=== PATIENT | female | born 1935 | race African-American/Black ===

== ENCOUNTER 2017-01-14 07:16 | Emergency (ER) | payer OTHER ==
[~2017-01-14] VITALS: Ht 160 cm; Wt 75.0 kg
[~2017-01-14 07:16] MED LIST: AMLO10 PO; ASPI81 PO; COZA100T PO; Co Q-10 PO; DICL-86 PO; LASI20TA PO; LORA10TA7 PO; MECL12.574 PO; MEGA RED; POTA-243 PO; PROT40TA PO; TEMA15 PO; TIZA4 PO; TRAM50 PO; ZETI10TA5 PO
[2017-01-14 07:19] VITALS: BP 143/68; PULSE 64; RESP 16; TEMP 98.1; O2SAT 99
[2017-01-14 07:59] LABS: AUTOMATED NEUTROPHIL # 2.7 TH/MM3 (1.8-7.7); BASOPHIL % 0.7 % (0.0-2.0); EOSINOPHIL # 0.1 TH/MM3 (0-0.4); EOSINOPHIL % 1.7 % (0.0-4.0); HEMATOCRIT 33.9 % (35.0-46.0); HEMO FLAGS DIFF FINAL; LYMPH % 39.5 % (9.0-44.0); LYMPHOCYTE # 2.2 TH/MM3 (1.0-4.8); MEAN CELL VOLUME 87.4 FL (80.0-100.0); MEAN CORPUSCULAR HEMOGLOBIN 28.8 PG (27.0-34.0); MONO % 8.7 % (0.0-8.0); NEUT % 49.4 % (16.0-70.0); PLATELET COUNT 242 TH/MM3 (150-450); RED BLOOD COUNT 3.88 MIL/MM3 (4.00-5.30); RED CELL DISTRIBUTION WIDTH 15.7 % (11.6-17.2); WHITE BLOOD COUNT 5.5 TH/MM3 (4.0-11.0)
[2017-01-14 08:12] LABS: ANION GAP 7 MEQ/L (5-15); BLOOD UREA NITROGEN 15 MG/DL (7-18); CHLORIDE 110 MEQ/L (98-107); GLOMERULAR FILTRATION RATE 68 ML/MIN (>89); POTASSIUM 3.6 MEQ/L (3.5-5.1); SODIUM (NA) 143 MEQ/L (136-145)
--- NOTE | 2017-01-14 08:14 | RADRPT ---
EXAM DATE/TIME: 01/14/2017 07:44 [facility] COMPARISON: KNEE LEFT COMPLETE (4VWS), June 18, 2016, 5:36. INDICATIONS : Chest pain. MEDICAL HISTORY : None. SURGICAL HISTORY : None. ENCOUNTER: Initial ACUITY: 1 day PAIN SCORE: 6/10 LOCATION: Left lower chest FINDINGS: A single view of the chest demonstrates the lungs to be symmetrically aerated without evidence of mas s, infiltrate or effusion. The cardiomediastinal contours are unremarkable. Osseous structures are intact. CONCLUSION: 1. Negative examination. Colten De Leon MD on January 14, 2017 at 8:12 Board Certified Radiologist. This report was verified electronically.
[2017-01-14 08:16] LABS: CREATINE KINASE 65 U/L (26-192)
--- NOTE | 2017-01-14 22:45 | EKG ---
Date Performed: 01/14/2017 Time Performed: 07:35:28 PTAGE: 81 years EKG: SINUS BRADYCARDIA BORDERLINE LEFT AXIS DEVIATION BORDERLINE ECG PREVIOUS TRACING : 10/21/2010 20.08 DOCTOR: Kelli Darling Interpretating Date/Time 01/14/2017 22:43:52
== END 2017-01-14 13:15 | disposition left against medical advice (07) ==
LOC: NED 07:16
DX: R07.9 Chest pain, unspecified (principal)
CPT/HCPCS: 71010; 80048; 82550; 84484; 85025; 93005; 99281

== ENCOUNTER 2017-01-16 12:36 | Observation (INO) | payer OTHER ==
[2017-01-16] VITALS (9 sets, daily range): BP systolic 142–162; BP diastolic 59–70; PULSE 47–59; RESP 15–24; TEMP 98.1–98.8; O2SAT 99–100
[~2017-01-16] VITALS: Ht 160 cm; Wt 72.0 kg
--- NOTE | 2017-01-16 14:09 | PD ---
HPI Chief Complaint: Cardiac Complaint Time Seen by Provider: 13:55 Travel History International Travel<30 days: No Contact w/Intl Traveler<30days: No Traveled to known affect area: No History of Present Illness HPI 81-year-old female with history of CVA, hypertension, presents for evaluation of chest and abdominal pain. She reports over the past 2 days. She's been expressing left sided chest and upper quadrant abdominal pain that radiates into left arm. She describes it as a pulsating pain that comes and goes. It seems to be worse in the mornings. She was initially expressing some pain 2 days ago, came here left without being seen. Yesterday she felt somewhat better although she continued pain in her left arm. Today she woke up with worsening pain which prompted evaluation. She does say that the pain in the left upper portion of her abdomen and radiates into the back. She denies any nausea or vomiting, cough or congestion, fevers or chills, diarrhea or constipation, calf swelling. No known history of AAA. No previous history of PE or DVT. Her last myocardial perfusion scan on record was in February 2010 and it was negative. She has no other complaints. PFSH Past Medical History Hx Anticoagulant Therapy: Yes (PLAVIX) Heart Rhythm Problems: No Cardiac Catheterization: No Cardiovascular Problems: No High Cholesterol: Yes Congestive Heart Failure: No Cerebrovascular Accident: Yes (TIA) Diabetes: No Diminished Hearing: No Gastrointestinal Disorders: Yes (colitis) GERD: Yes Hypertension: Yes Myocardial Infarction: No Menopausal: Yes : 4 Para: 4 Past Surgical History Coronary Artery Bypass Graft: No Hysterectomy: Yes Tonsillectomy: Yes Family History Family Hypercholesterolemia: Yes (PT HX) Social History Alcohol Use: Yes (OCCASIONAL WINE) Tobacco Use: No Substance Use: No Allergies-Medications (Allergen,Severity, Reaction): Coded Allergies: Penicillin (Verified Allergy, Unknown, UNKNOWN REACTION, 01/16/17) Garlic (Verified Adverse Reaction, Severe, NAUSEA, VOMITING, 01/16/17) Uncoded Allergies: nuts (Allergy, Severe, 10/21/10) Reported Meds & Prescriptions Reported Meds & Active Scripts Active Reported Tramadol (Tramadol HCl) 50 Mg Tab 50 Mg PO Q12HR PRN Tizanidine (Tizanidine HCl) 4 Mg Cap 4 Mg PO TID D3 (Cholecalciferol) 1,000 Unit Tab Coq10 (Coenzyme Q10 (Ubidecarenone)) 200 Mg Cap Clopidogrel (Clopidogrel Bisulfate) 75 Mg Tab 75 Mg PO DAILY Montelukast (Montelukast Sodium) 10 Mg Tab 10 Mg PO HS Potassium Chloride ER (Potassium Chloride) 10 Meq Cap 10 Meq PO BID Furosemide 40 Mg Tab 40 Mg PO BID Meclizine (Meclizine HCl) 12.5 Mg Tab 12.5 Mg PO DIRECTED PRN Pantoprazole (Pantoprazole Sodium) 40 Mg Tab 40 Mg PO DAILY Atorvastatin (Atorvastatin Calcium) 10 Mg Tab 10 Mg PO HS Losartan (Losartan Potassium) 100 Mg Tab 100 Mg PO DAILY Norvasc (Amlodipine Besylate) 10 Mg Tab 10 Mg PO DAILY Review of Systems Except as stated in HPI: all other systems reviewed are Neg Physical Exam Narrative GENERAL: Well-developed well-nourished female in no acute distress SKIN: Warm and dry. HEAD: Atraumatic. Normocephalic. EYES: Pupils equal and round. No scleral icterus. No injection or drainage. ENT: No nasal bleeding or discharge. Mucous membranes pink and moist. NECK: Trachea midline. No JVD. CARDIOVASCULAR: Regular rate and rhythm. No murmur appreciated. RESPIRATORY: No accessory muscle use. Clear to auscultation. Breath sounds equal bilaterally. No crackles no wheezing or rhonchi GASTROINTESTINAL: Abdomen soft, tender to palpation left upper quadrant with pain radiating to the back with palpation. No guarding. No palpable masses. No flank or periumbilical ecchymosis. MUSCULOSKELETAL: No obvious deformities. No clubbing. No cyanosis. No edema. NEUROLOGICAL: Awake and alert. No obvious cranial nerve deficits. Motor grossly within normal limits. Normal speech. PSYCHIATRIC: Appropriate mood and affect; insight and judgment normal. Data Data Last Documented VS Vital Signs Date Time Temp Pulse Resp B/P Pulse Ox O2 Delivery O2 Flow Rate FiO2 01/16/17 15:35 48 21 150/64 100 Room Air 01/16/17 12:39 98.1 Orders Electrocardiogram (01/16/17 ) Ckmb (Isoenzyme) Profile (01/16/17 14:02) Complete Blood Count With Diff (01/16/17 14:02) Comprehensive Metabolic Panel (01/16/17 14:02) Magnesium (Mg) (01/16/17 14:02) Prothrombin Time / Inr (Pt) (01/16/17 14:02) Act Partial Throm Time (Ptt) (01/16/17 14:02) Troponin I (01/16/17 14:02) Lipase (01/16/17 14:02) Chest, Single Ap (01/16/17 14:02) Ecg Monitoring (01/16/17 14:02) Bilateral Bp Monitoring (01/16/17 14:02) Iv Access Insert/Monitor (01/16/17 14:02) Oximetry (01/16/17 14:02) Oxygen Administration (01/16/17 14:02) Sodium Chloride 0.9% Flush (Ns Flush) (01/16/17 14:15) Ct Abd/Pel W Iv Contrast(Rout) (01/16/17 14:02) Ct Pulmonary Angiogram (01/16/17 14:04) CKMB (01/16/17 14:30) CKMB% (01/16/17 14:30) Iohexol 350 Inj (Omnipaque 350 Inj) (01/16/17 16:09) Admit Order (Ed Use Only) (01/16/17 17:01) Labs Laboratory Tests Test 01/16/17 14:30 White Blood Count 5.7 TH/MM3 Red Blood Count 4.06 MIL/MM3 Hemoglobin 11.5 GM/DL Hematocrit 34.9 % Mean Corpuscular Volume 86.0 FL Mean Corpuscular Hemoglobin 28.4 PG Mean Corpuscular Hemoglobin 33.1 % Concent Red Cell Distribution Width 15.5 % Platelet Count 258 TH/MM3 Mean Platelet Volume 9.2 FL Neutrophils (%) (Auto) 52.4 % Lymphocytes (%) (Auto) 38.2 % Monocytes (%) (Auto) 7.8 % Eosinophils (%) (Auto) 1.0 % Basophils (%) (Auto) 0.6 % Neutrophils # (Auto) 3.0 TH/MM3 Lymphocytes # (Auto) 2.2 TH/MM3 Monocytes # (Auto) 0.4 TH/MM3 Eosinophils # (Auto) 0.1 TH/MM3 Basophils # (Auto) 0.0 TH/MM3 CBC Comment DIFF FINAL Differential Comment Prothrombin Time 10.8 SEC Prothromb Time International 1.0 RATIO Ratio Activated Partial 27.9 SEC Thromboplast Time Sodium Level 141 MEQ/L Potassium Level 3.5 MEQ/L Chloride Level 106 MEQ/L Carbon Dioxide Level 26.8 MEQ/L Anion Gap 8 MEQ/L Blood Urea Nitrogen 16 MG/DL Creatinine 1.00 MG/DL Estimat Glomerular Filtration 65 ML/MIN Rate Random Glucose 85 MG/DL Calcium Level 9.1 MG/DL Magnesium Level 1.9 MG/DL Total Bilirubin 0.4 MG/DL Aspartate Amino Transf 16 U/L (AST/SGOT) Alanine Aminotransferase 13 U/L (ALT/SGPT) Alkaline Phosphatase 68 U/L Total Creatine Kinase 124 U/L Creatine Kinase MB 0.5 NG/ML Troponin I LESS THAN 0.02 NG/ML Total Protein 7.0 GM/DL Albumin 3.4 GM/DL Lipase 101 U/L [facility] Medical Decision Making Medical Screen Exam Complete: Yes Emergency Medical Condition: Yes Medical Record Reviewed: Yes Interpretation(s) EKG sinus bradycardia rate 51 Chest x-ray normal Labwork unremarkable CT abdomen and pelvis CT pulmonary angiogram Differential Diagnosis Gastritis, pancreatitis, AAA, pleurisy, pericarditis, myocarditis, pe, unstable angina, peptic ulcer disease Narrative Course 81-year-old female with 2 days of left-sided chest and abdominal pain that radiates into left arm and into the back. Discussed with Dr. Haines who agrees with plan of care. Plans for basic lab work, EKG with ECG monitoring, CT of the abdomen and pelvis as well as CT pulmonary angiogram. The patient's laboratory imaging studies. CT of the abdomen and pelvis reveals possible mild ileus or gastroenteritis per radiology read however the patient has no symptoms to suggest ileus or gastroenteritis. Nares reveals mild dilatation of the ascending aorta with no acute abnormalities. On examination the patient continues to be chest pain-free at this time. The plan therefore be treated with the patient and of the chest pain center for serial cardiac enzymes and rule out purposes. She is agreeable. The patient did take Plavix this morning as routinely scheduled. Diagnosis Primary Impression: Chest pain Qualified Code: R07.9 - Chest pain, unspecified type Admitting Information Admitting Physician Requests: Hector Cummings Jan 16, 2017 14:09
[2017-01-16] MEDS ORDERED: SODIUM CHLORIDE 0.9% FLUSH 5 ML FLUSH IVF PRN ×2 (14:15→17:15)
[2017-01-16] MEDS ORDERED: MONT10TA4 PO (14:19)
[2017-01-16] MEDS ORDERED: TRAM50TA PO (14:19)
[2017-01-16] MEDS ORDERED: LOSA100T PO (14:19)
[2017-01-16] MEDS ORDERED: AMLO10 PO (14:19)
[2017-01-16] MEDS ORDERED: FURO40TA PO (14:19)
[2017-01-16] MEDS ORDERED: ATOR10TA15 PO (14:19)
[2017-01-16] MEDS ORDERED: PANT40TA3 PO (14:19)
[2017-01-16] MEDS ORDERED: POTA10CA PO (14:19)
[2017-01-16] MEDS ORDERED: CLOP75TA PO (14:19)
[2017-01-16] MEDS ORDERED: TIZA4CAP3 PO (14:19)
[2017-01-16] MEDS ORDERED: MECL12.574 PO (14:19)
[2017-01-16] MEDS ORDERED: D31000TA (14:19)
[2017-01-16] MEDS ORDERED: COQ1200C (14:19)
[2017-01-16 15:01] LABS: BASOPHIL % 0.6 % (0.0-2.0); EOSINOPHIL # 0.1 TH/MM3 (0-0.4); HEMATOCRIT 34.9 % (35.0-46.0); HEMO FLAGS DIFF FINAL; LYMPH % 38.2 % (9.0-44.0); LYMPHOCYTE # 2.2 TH/MM3 (1.0-4.8); MEAN CORPUSCULAR HEMOGLOBIN 28.4 PG (27.0-34.0); MEAN CORPUSCULAR HGB CONC 33.1 % (32.0-36.0); MONO % 7.8 % (0.0-8.0); NEUT % 52.4 % (16.0-70.0); PLATELET COUNT 258 TH/MM3 (150-450); RED BLOOD COUNT 4.06 MIL/MM3 (4.00-5.30); RED CELL DISTRIBUTION WIDTH 15.5 % (11.6-17.2); WHITE BLOOD COUNT 5.7 TH/MM3 (4.0-11.0)
[2017-01-16 15:10] LABS: APTT (PATIENT) 27.9 SEC (24.3-30.1); PROTHROMBIN TIME - PATIENT 10.8 SEC (9.8-11.6)
--- NOTE | 2017-01-16 15:12 | RADRPT ---
EXAM DATE/TIME: 01/16/2017 14:28 [facility] COMPARISON: CHEST SINGLE AP, January 14, 2017, 7:44. INDICATIONS : Chest pain. MEDICAL HISTORY : Hypertension. SURGICAL HISTORY : None. ENCOUNTER: Initial ACUITY: 3 days PAIN SCORE: 6/10 LOCATION: Left upper chest FINDINGS: A single view of the chest demonstrates the lungs to be symmetrically aerated without evidence of mas s, infiltrate or effusion. Atherosclerotic calcifications are present in the aorta. The cardiomediast inal contours are unremarkable. Osseous structures are intact. CONCLUSION: No acute disease. Bishnu Sanz MD on January 16, 2017 at 15:10 Board Certified Radiologist. This report was verified electronically.
[2017-01-16 15:16] LABS: ALT (GPT) 13 U/L (10-53); ANION GAP 8 MEQ/L (5-15); AST (GOT) 16 U/L (15-37); BICARBONATE 26.8 MEQ/L (21.0-32.0); BLOOD UREA NITROGEN 16 MG/DL (7-18); CHLORIDE 106 MEQ/L (98-107); GLOMERULAR FILTRATION RATE 65 ML/MIN (>89); MAGNESIUM 1.9 MG/DL (1.5-2.5); POTASSIUM 3.5 MEQ/L (3.5-5.1); SODIUM (NA) 141 MEQ/L (136-145)
[2017-01-16 15:20] LABS: ALKALINE PHOSPHATASE 68 U/L (45-117); CREATINE KINASE 124 U/L (26-192); TOTAL BILIRUBIN ADULT 0.4 MG/DL (0.2-1.0)
[2017-01-16 15:32] LABS: CKMB 0.5 NG/ML (0.5-3.6)
[2017-01-16] MEDS ORDERED: IOHEXOL 350 MG/ML 10 ML VIAL (for RAD DIAG) IV ONE (16:09)
--- NOTE | 2017-01-16 16:43 | RADRPT ---
EXAM DATE/TIME: 01/16/2017 15:58 [facility] COMPARISON: No previous studies available for comparison. INDICATIONS : Abdominal/chest pain radiating to left arm. IV CONTRAST: 93 cc Omnipaque 350 (iohexol) IV ; Cumulative dose for multiple exams. RADIATION DOSE: 20.89 CTDIvol (mGy) MEDICAL HISTORY : Hypertension. Colitis SURGICAL HISTORY : Hysterectomy. ENCOUNTER: Initial ACUITY: 1 day PAIN SCALE: 4/10 LOCATION: Left chest TECHNIQUE: Volumetric scanning of the chest was performed using a pulmonary embolism protocol MIP images were reconstructed. Using automated exposure control and adjustment of the mA and/or kV acco rding to patient size, radiation dose was kept as low as reasonably achievable to obtain optimal diag nostic quality images. FINDINGS: The lungs are clear. There is no evidence for central pulmonary emboli. There is no axillary or mediastinal adenopathy. There is moderate coronary artery calcification evident with minimal dilatation of the ascending aort a when compared to the descending aorta. The ascending aorta is dilated to 3.8 cm. There is no pericardial effusion. Portion of the liver and spleen identified are free of focal defec ts. CONCLUSION: 1. There is no evidence of central pulmonary emboli. 2. Mild dilatation of the ascending aorta. Bryan De Leon MD FACR on January 16, 2017 at 16:13 Board Certified Radiologist. This report was verified electronically.
--- NOTE | 2017-01-16 16:43 | RADRPT ---
EXAM DATE/TIME: 01/16/2017 15:56 [facility] COMPARISON: No previous studies available for comparison. INDICATIONS : Abdominal/chest pain radiating to left arm. IV CONTRAST: 93 cc Omnipaque 350 (iohexol) IV ; Cumulative dose for multiple exams. ORAL CONTRAST: No oral contrast ingested. RADIATION DOSE: 8.73 CTDIvol (mGy) MEDICAL HISTORY : Hypertension. Colitis SURGICAL HISTORY : Hysterectomy. ENCOUNTER: Initial ACUITY: 1 day PAIN SCALE: 5/10 LOCATION: Left abdominal TECHNIQUE: Volumetric scanning of the abdomen and pelvis was performed. Using automated exposure control and ad justment of the mA and/or kV according to patient size, radiation dose was kept as low as reasonably achievable to obtain optimal diagnostic quality images. FINDINGS: LOWER LUNGS: The visualized lower lungs are clear. LIVER: Homogeneous density without lesion. There is no dilation of the biliary tree. No calcified gallston es. SPLEEN: Normal in size and shape with 2 small round low-attenuation lesions measuring 7-8 mm in size. PANCREAS: Within normal limits. KIDNEYS: Normal in size and shape. There is no mass, stone or hydronephrosis. ADRENAL GLANDS: Within normal limits. VASCULAR: There is no aortic aneurysm. BOWEL/MESENTERY: There are multiple loops of nondilated air-containing small bowel several small air-fluid levels. The re is no free air. Gas and stool are noted segmentally in the colon. There is no abnormal fluid colle ction. ABDOMINAL WALL: Within normal limits. RETROPERITONEUM: There is no lymphadenopathy. BLADDER: No wall thickening or mass. REPRODUCTIVE: Within normal limits. INGUINAL: There is no lymphadenopathy or hernia. MUSCULOSKELETAL: Within normal limits for patient age. CONCLUSION: 1. Nonspecific, nonobstructive bowel gas pattern which may represent a mild ileus or gastroenteritis. No oral contrast was given limiting the sensitivity. 2. 2 small low-attenuation lesions in the spleen which are nonspecific but likely benign. Bishnu Sanz MD on January 16, 2017 at 16:38 Board Certified Radiologist. This report was verified electronically.
[2017-01-16 19:09] LABS: CREATINE KINASE 56 U/L (26-192)
[2017-01-16] MEDS: SODIUM CHLORIDE 0.9% FLUSH 5 ML FLUSH IVF SCH (21:06)
[2017-01-16 22:21] LABS: CREATINE KINASE 55 U/L (26-192)
[2017-01-17 00:14] VITALS: BP 116/59; PULSE 68; RESP 18; TEMP 98.8; O2SAT 98
[2017-01-17 05:48] VITALS: BP 114/63; PULSE 58; RESP 18; TEMP 98; O2SAT 98
[2017-01-17 07:35] VITALS: BP 152/67; PULSE 56; RESP 18; TEMP 98.5; O2SAT 97
[2017-01-17 08:15] VITALS: PULSE 60
[2017-01-17] MEDS: SODIUM CHLORIDE 0.9% FLUSH 5 ML FLUSH IVF SCH (09:06)
[2017-01-17] MEDS ORDERED: traMADol HCL 50 MG TAB PO PRN (09:45)
[2017-01-17] MEDS ORDERED: CLOPIDOGREL 75 MG TAB PO SCH (10:00)
[2017-01-17] MEDS ORDERED: FUROSEMIDE 40 MG TAB PO SCH (10:00)
[2017-01-17] MEDS ORDERED: POTASSIUM CHLORIDE 10 MEQ CAP PO SCH (10:00)
[2017-01-17] MEDS ORDERED: PANTOPRAZOLE SOD 40 MG DELAYED RELEASE TAB PO SCH (10:00)
[2017-01-17] MEDS ORDERED: LOSARTAN 50 MG TAB PO SCH (10:00)
--- NOTE | 2017-01-17 10:31 | HHI.HP ---
[facility] Primary Care Physician Aleida Culver MD Chief Complaint Chest and abdominal pain History of Present Illness This is a 81-year-old female that presents to the ED complaining of chest and abdominal pain that has been intermittent. She states that she has had discomfort in her chest a few times this week. She describes as a sharp pain in the left anterior chest wall radiating into her left arm and down into her abdomen. She states that she dares not to move her left arm while she has the discomfort as it would worsen it so much more. She denies any trauma. Denies shortness red nausea diaphoresis. She's had no diarrhea. Denies any recent travel. She states she had a normal bowel movement 2 evenings ago. She states she has a bowel movement about every other day. Denies fevers or chills. Review of Systems General: Patient denies fevers, chills recent, and recent travel HEENT: Patient denies headache, sore throat, difficulty swallowing. Cardiovascular: Has the chest discomfort as mentioned above. Denies sensation of heart beating rapidly or irregularly. No syncope. Respiratory: Denies shortness of breath or inspirational chest discomfort. Denies coughing wheezing or hemoptysis. GI: Patient is complaining of abdominal discomfort and points to her left upper quadrant and epigastric region. Patient denies nausea, vomiting, diarrhea, bloody stools. Musculoskeletal: Patient denies joint pain or edema. Denies calf pain or edema. Neurovascular: Patient denies numbness, tingling, weakness in extremities. Denies headache. Endocrine: Denies polyuria and polydipsia. Hematologic: Denies easy bruising. Skin: Denies rash or itching. Past Family Social History Allergies: Coded Allergies: Penicillin (Verified Allergy, Unknown, UNKNOWN REACTION, 01/16/17) Garlic (Verified Adverse Reaction, Severe, NAUSEA, VOMITING, 01/16/17) Uncoded Allergies: nuts (Allergy, Severe, 10/21/10) Past Medical History CVA 20 years ago. Hypertension, hyperlipidemia. Denies diabetes and known CAD. Past Surgical History Hysterectomy, tonsillectomy, and total left knee replacement. Reported Medications Reported Meds & Active Scripts Active Reported Tramadol (Tramadol HCl) 50 Mg Tab 50 Mg PO Q12HR PRN Tizanidine (Tizanidine HCl) 4 Mg Cap 4 Mg PO TID D3 (Cholecalciferol) 1,000 Unit Tab Coq10 (Coenzyme Q10 (Ubidecarenone)) 200 Mg Cap Clopidogrel (Clopidogrel Bisulfate) 75 Mg Tab 75 Mg PO DAILY Montelukast (Montelukast Sodium) 10 Mg Tab 10 Mg PO HS Potassium Chloride ER (Potassium Chloride) 10 Meq Cap 10 Meq PO BID Furosemide 40 Mg Tab 40 Mg PO BID Meclizine (Meclizine HCl) 12.5 Mg Tab 12.5 Mg PO DIRECTED PRN Pantoprazole (Pantoprazole Sodium) 40 Mg Tab 40 Mg PO DAILY Atorvastatin (Atorvastatin Calcium) 10 Mg Tab 10 Mg PO HS Losartan (Losartan Potassium) 100 Mg Tab 100 Mg PO DAILY Norvasc (Amlodipine Besylate) 10 Mg Tab 10 Mg PO DAILY Active Ordered Medications Current Medications Medications (Trade) Dose Ordered Sig/Maciel Route Start Time Stop Time Status Last Admin (NS Flush) 2 ml UNSCH PRN IVF 01/16/17 14:15 (NS Flush) 2 ml UNSCH PRN IVF 01/16/17 17:15 (NS Flush) 2 ml BID IVF 01/16/17 21:00 01/17/17 09:06 (Norvasc) 10 mg DAILY PO 01/17/17 10:00 (Lipitor) 10 mg HS PO 01/17/17 21:00 (Plavix) 75 mg DAILY PO 01/17/17 10:00 (Lasix) 40 mg BID PO 01/17/17 10:00 (Cozaar) 100 mg DAILY PO 01/17/17 10:00 (Protonix) 40 mg DAILY PO 01/17/17 10:00 (KCl) 10 meq BID PO 01/17/17 10:00 (Zanaflex) 4 mg TID PO 01/17/17 13:00 (Ultram) 50 mg Q12HR PRN PO 01/17/17 09:45 Family History Denies family history of CAD. She states that her father in his 70s of cirrhosis. Her mother is still alive at age 99. Her sister has no CAD. Social History Patient is a lifetime nonsmoker. Has maybe a glass of wine per week. Denies illicit drugs. She lives alone but states that her daughter lives nearby. Physical Exam Vital Signs Vital Signs Date Time Temp Pulse Resp B/P Pulse Ox O2 Delivery O2 Flow Rate FiO2 01/17/17 07:35 98.5 56 18 152/67 97 01/17/17 05:48 98.0 58 18 114/63 98 01/17/17 00:14 98.8 68 18 116/59 98 01/16/17 23:00 58 01/16/17 20:18 98.8 54 18 142/59 99 01/16/17 20:00 58 01/16/17 19:34 46 18 147/67 100 01/16/17 15:35 48 21 150/64 100 Room Air 01/16/17 14:39 100 Room Air 01/16/17 14:39 100 Room Air 01/16/17 14:38 47 24 142/62 100 01/16/17 14:37 50 24 142/62 100 01/16/17 12:39 98.1 59 15 162/70 99 Physical Exam GENERAL: This is a well-nourished, well-developed patient, in no apparent distress. Patient speaks in clear complete sentences. Patient is pleasant. HEENT: Head is atraumatic and normocephalic. Neck is supple without lymphadenopathy and trachea is midline. No JVD. There is a left carotid bruit. CARDIOVASCULAR: Regular rate and rhythm without murmurs, gallops, or rubs. RESPIRATORY: Clear to auscultation. Breath sounds equal bilaterally. No wheezes , rales, or rhonchi. Left lateral chest wall is extremely tender to palpate. It is also worsened with movement of her left arm. This is the discomfort she has been having in her chest.. No use of accessory muscles. GASTROINTESTINAL: Abdomen is tender in the epigastric and left upper quadrant region. Abdomen is nondistended. Abdomen soft. No obvious pulsatile mass or bruit. No CVA tenderness. Strong femoral pulses bilaterally. Normal bowel sounds in all quadrants. MUSCULOSKELETAL: Patient is moving upper and lower extremities freely. No calf tenderness or edema, no Homans sign. Strong pulses in upper and lower extremities. NEUROLOGICAL: Patient is alert and oriented. Cranial nerves 2-12 are grossly intact. No focal deficits and speech is clear. SKIN: No rash and turgor is normal. Laboratory Laboratory Tests Test 01/16/17 01/16/17 01/16/17 14:30 17:55 21:07 White Blood Count 5.7 Red Blood Count 4.06 Hemoglobin 11.5 Hematocrit 34.9 Mean Corpuscular Volume 86.0 Mean Corpuscular Hemoglobin 28.4 Mean Corpuscular Hemoglobin 33.1 Concent Red Cell Distribution Width 15.5 Platelet Count 258 Mean Platelet Volume 9.2 Neutrophils (%) (Auto) 52.4 Lymphocytes (%) (Auto) 38.2 Monocytes (%) (Auto) 7.8 Eosinophils (%) (Auto) 1.0 Basophils (%) (Auto) 0.6 Neutrophils # (Auto) 3.0 Lymphocytes # (Auto) 2.2 Monocytes # (Auto) 0.4 Eosinophils # (Auto) 0.1 Basophils # (Auto) 0.0 CBC Comment DIFF FINAL Differential Comment Prothrombin Time 10.8 Prothromb Time International 1.0 Ratio Activated Partial 27.9 Thromboplast Time Sodium Level 141 Potassium Level 3.5 Chloride Level 106 Carbon Dioxide Level 26.8 Anion Gap 8 Blood Urea Nitrogen 16 Creatinine 1.00 Estimat Glomerular Filtration 65 Rate Random Glucose 85 Calcium Level 9.1 Magnesium Level 1.9 Total Bilirubin 0.4 Aspartate Amino Transf 16 (AST/SGOT) Alanine Aminotransferase 13 (ALT/SGPT) Alkaline Phosphatase 68 Total Creatine Kinase 124 56 55 Creatine Kinase MB 0.5 Troponin I LESS THAN 0.02 LESS THAN 0.02 LESS THAN 0.02 Total Protein 7.0 Albumin 3.4 Lipase 101 Result Diagram: 01/16/17 1430 01/16/17 1430 Imaging Last 24 hours Impressions Chest X-Ray 01/16/17 1402 Signed Impressions: Service Date/Time: Monday, January 16, 2017 14:28 - CONCLUSION: No acute disease. Bishnu Sanz MD Abdomen/Pelvis CT 01/16/17 1402 Signed Impressions: Service Date/Time: Monday, January 16, 2017 15:56 - CONCLUSION: 1. Nonspecific, nonobstructive bowel gas pattern which may represent a mild ileus or gastroenteritis. No oral contrast was given limiting the sensitivity. 2. 2 small low-attenuation lesions in the spleen which are nonspecific but likely benign. Bishnu Sanz MD Course EKGs have had sinus bradycardia without significant ST segment depressions or elevations. There are nonspecific T-wave changes diffusely. Assessment and Plan Assessment and Plan * Chest pain: Patient has had serial cardiac enzymes and EKGs for ruling out purposes. Her discomfort is rather easily reproducible in her chest on palpating the area and with movement of her left arm. She will be seen by Dr. Gibson of cardiology and the chest is under. Likely there'll be no further cardiac workup as her symptoms do not appear cardiac in nature. She will need follow-up with her primary care physician Dr. Culver. * Abdominal pain: CT abdomen and pelvis as read by radiologist as possible mild ileus versus gastroenteritis as well as having 2 lesions on the spleen likely benign. Her abdomen is tender but it is soft. She's had no vomiting or nausea or diarrhea. She has had a good appetite at home. We will let the patient have breakfast and see how she feels. She feels occasionally likely be discharged home with instructions to follow-up with her primary care physician on Thursday or Thursday. She is to certainly return to the ED if she were to develop nausea vomiting or worsening abdominal pain. * History of CVA: Continue current medications. * Hypertension: Continue her medication. * Hyperlipidemia: Continue current medications. Caden Barrios Jan 17, 2017 10:31
--- NOTE | 2017-01-17 13:07 | HHI.DCPOC ---
Discharge Care Plan Diagnosis: (1) Chest pain (2) Abdominal pain (3) Hyperlipidemia (4) Hypertension (5) History of CVA (cerebrovascular accident) Goals to Promote Your Health DISCUSS ABNORMAL CT OF THE ABDOMEN WITH YOUR PRIMARY CARE PHYSICIAN. * To prevent worsening of your condition and complications * To maintain your health at the optimal level Directions to Meet Your Goals Take your medications as prescribed Follow your dietary instruction Follow activity as directed Keep your appointments as scheduled Take your immunizations and boosters as scheduled If your symptoms worsen call your PCP, if no PCP go to Urgent Care Center or Emergency Room Smoking is Dangerous to Your Health. Avoid second hand smoke Call the 24-hour hour crisis hotline for domestic abuse at Caden Barrios Jan 17, 2017 13:07
--- NOTE | 2017-01-17 15:38 | EKG ---
Date Performed: 01/16/2017 Time Performed: 13:10:38 PTAGE: 81 years EKG: SINUS BRADYCARDIA BORDERLINE LEFT AXIS DEVIATION LOW QRS VOLTAGE IN PRECORDIAL LEADS Compar ed to previous tracing, no significant change BORDERLINE ECG PREVIOUS TRACING : 01/14/2017 07.35 DOCTOR: Leo Gibson Interpretating Date/Time 01/17/2017 15:37:59
--- NOTE | 2017-01-17 16:47 | EKG ---
Date Performed: 01/16/2017 Time Performed: 20:51:53 PTAGE: 81 years EKG: SINUS BRADYCARDIA POSSIBLE ANTERIOR MYOCARDIAL INFARCTION ABNORMAL ECG Left axis deviation PREVIOUS TRACING : 01/16/2017 18.02 Since previous tracing, no significant change noted DOCTOR: Leo Gibson Interpretating Date/Time 01/17/2017 16:46:44
--- NOTE | 2017-01-17 16:48 | EKG ---
Date Performed: 01/16/2017 Time Performed: 18:02:52 PTAGE: 81 years EKG: SINUS BRADYCARDIA BORDERLINE LEFT AXIS DEVIATION BORDERLINE ECG PREVIOUS TRACING : 01/16/2017 13.10 Since previous tracing, no significant change noted DOCTOR: Leo Gibson Interpretating Date/Time 01/17/2017 16:47:39
[2017-01-17] MEDS ORDERED: ATORVASTATIN 10 MG TAB PO SCH (21:00)
== END 2017-01-17 14:58 | disposition home or self-care (01) ==
LOC: NEPC 12:36 → NEDA 17:02 → NEPHCDU 19:38
PROVIDERS: ADMIT Internal Medicine Cardiovascular Disease; ATTEND Internal Medicine Cardiovascular Disease
DX: R07.9 Chest pain, unspecified (principal); K52.9 Noninfective gastroenteritis and colitis, unspecified; I10 Essential (primary) hypertension; R00.1 Bradycardia, unspecified; R94.31 Abnormal electrocardiogram [ECG] [EKG]; K21.9 Gastro-esophageal reflux disease without esophagitis; E78.5 Hyperlipidemia, unspecified; E78.00 Pure hypercholesterolemia, unspecified; Z86.73 Personal history of transient ischemic attack (TIA), and cerebral infarction without residual deficits; Z96.652 Presence of left artificial knee joint
CPT/HCPCS: 71010; 71275; 74177; 80053; 82550; 82552; 83690; 83735; 84484; 85025; 85610; 85730; 93005; 99285; G0378; Q9967